=== PATIENT | male | born 1975 | race Caucasian/White ===

== ENCOUNTER 2020-09-21 00:55 | Emergency (ER) | payer SELFPAY ==
[~2020-09-21] VITALS: Ht 177.8 cm; Wt 81.6 kg
[2020-09-21 00:59] VITALS: BP 123/72
--- NOTE | 2020-09-21 01:07 | NUR ---
PT CLEARED FOR BOOKING BY AAMIR
[2020-09-21 01:08] VITALS: BP 123/72
== END 2020-09-21 01:09 ==
LOC: MED 00:55
DX: F10.129 Alcohol abuse with intoxication, unspecified (principal); Z02.89 Encounter for other administrative examinations; Y90.9 Presence of alcohol in blood, level not specified
CPT/HCPCS: 99283